=== PATIENT | male | born 1945 | race Caucasian/White ===

== ENCOUNTER 2016-04-29 22:41 | Emergency (ER) | payer BC, MEDICARE ==
--- NOTE | 2016-04-29 23:58 | ER Document Report ---
ED Medical Screen (RME) - General Stated Complaint: POSSIBLE HEMORROIDS Notes: 70 year old male, complaining of worsening hemorrhoid pain with painful sitting and painful bowel movements. Pain has been going on for months. Patient has had hemorrhoid surgery many years ago reportedly. Patient states he's been evaluated 3 times up for this already, given Percocet, ibuprofen, and a topical cream but these do not appear to be helping. Intermittent bleeding, no current bleeding. Patient denies any abdominal pain, dizziness, fever. - Related Data Allergies/Adverse Reactions: Iodinated Contrast Media - Oral and [IV Dye, Iodine Containing] Allergy ( Verified 09/03/12 13:36) "convulsions"/hives Past Medical History Pulmonary Medical History: Reports: Hx COPD Renal/ Medical History: Reports: Hx Kidney Stones Past Surgical History: Reports: Hx Appendectomy, Hx Cardiac Catheterization, Hx Kidney (Renal Surgery) - Immunizations Hx Diphtheria, Pertussis, Tetanus Vaccination: No Physical Exam - Vital signs Vitals: Temp Pulse Resp BP Pulse Ox 98.0 F 68 20 118/81 96 04/29/16 23:19 04/29/16 23:19 04/29/16 23:19 04/29/16 23:19 04/29/16 23:19 - General General appearance: Anxious In distress: None - Patient is in no distress but sits awkwardly on the chair Course - Vital Signs Vital signs: Temp Pulse Resp BP Pulse Ox 98.0 F 68 20 118/81 96 04/29/16 23:19 04/29/16 23:19 04/29/16 23:19 04/29/16 23:19 04/29/16 23:19
--- NOTE | 2016-04-30 05:11 | ER Document Report ---
ED GI/ - General Chief Complaint: Rectal Pain Stated Complaint: POSSIBLE HEMORROIDS Time seen by provider: 05:00 Notes: 70 year old male, complaining of worsening hemorrhoid pain with painful sitting and painful bowel movements. Pain has been going on for months. Patient has had hemorrhoid surgery many years ago reportedly. Patient states he's been evaluated 3 times up for this already, given Percocet, ibuprofen, and a topical cream but these do not appear to be helping. Intermittent bleeding, no current bleeding. Patient denies any abdominal pain, dizziness, fever. TRAVEL OUTSIDE OF THE [place] IN LAST 30 DAYS: No - Related Data Allergies/Adverse Reactions: Iodinated Contrast Media - Oral and [IV Dye, Iodine Containing] Allergy ( Verified 09/03/12 13:36) "convulsions"/hives Past Medical History - General Information source: Patient - Social History Smoking Status: Former Smoker Chew tobacco use (# tins/day): No Frequency of alcohol use: None Drug Abuse: None Lives with: Family Family History: CAD Patient has suicidal ideation: No Patient has homicidal ideation: No Pulmonary Medical History: Reports: Hx COPD Renal/ Medical History: Reports: Hx Kidney Stones. Denies: Hx Peritoneal Dialysis Past Surgical History: Reports: Hx Appendectomy, Hx Cardiac Catheterization, Hx Kidney (Renal Surgery) - Immunizations Hx Diphtheria, Pertussis, Tetanus Vaccination: No Hx Pneumococcal Vaccination: 12/28/11 Review of Systems - Review of Systems Constitutional: No symptoms reported EENT: No symptoms reported Cardiovascular: No symptoms reported Respiratory: No symptoms reported Gastrointestinal: See HPI Genitourinary: No symptoms reported Male Genitourinary: No symptoms reported Musculoskeletal: No symptoms reported Skin: No symptoms reported Hematologic/Lymphatic: No symptoms reported Neurological/Psychological: No symptoms reported Physical Exam - Vital signs Vitals: Temp Pulse Resp BP Pulse Ox 98.0 F 68 20 118/81 96 04/29/16 23:19 04/29/16 23:19 04/29/16 23:19 04/29/16 23:19 04/29/16 23:19 Interpretation: Normal - General General appearance: Appears well, Alert - HEENT Head: Normocephalic, Atraumatic Eyes: Normal Pupils: PERRL - Respiratory Respiratory status: No respiratory distress Chest status: Nontender Breath sounds: Normal Chest palpation: Normal - Cardiovascular Rhythm: Regular Heart sounds: Normal auscultation Murmur: No - Abdominal Inspection: Normal Distension: No distension Bowel sounds: Normal Tenderness: Nontender. No: Tender, Guarding Organomegaly: No organomegaly - Rectal Tenderness: No - no significant tenderness Stool: No: Black, Bloody Hemorrhoids: Internal, External - 2 large but are be opened and not currently bleeding external hemorrhoids, no thrombosed hemorrhoids, Other - No palpated induration or fluctuance, no evidence of perianal abscess. No: Anal fissure - Back Back: Normal, Nontender - Extremities General upper extremity: Normal inspection, Nontender, Normal color, Normal ROM , Normal temperature General lower extremity: Normal inspection, Nontender, Normal color, Normal ROM , Normal temperature, Normal weight bearing. No: Alexandro's sign - Neurological Neuro grossly intact: Yes Cognition: Normal Orientation: AAOx4 Boon Coma Scale Eye Opening: Spontaneous Boon Coma Scale Verbal: Oriented Abram Coma Scale Motor: Obeys Commands Abram Coma Scale Total: 15 Speech: Normal Motor strength normal: LUE, RUE, LLE, RLE Sensory: Normal - Psychological Associated symptoms: Normal affect, Normal mood - Skin Skin Temperature: Warm Skin Moisture: Dry Skin Color: Normal Course - Re-evaluation Re-evalutation: Patient has hemorrhoids but these have already drained/bled, no lancing necessary, no fissure, no evidence of perianal abscess on examination. Patient will be treated for hemorrhoids symptomatically, referred to surgery. - Vital Signs Vital signs: Temp Pulse Resp BP Pulse Ox 97.6 F 68 16 129/74 H 96 04/30/16 05:23 04/30/16 05:23 04/30/16 05:23 04/30/16 05:23 04/30/16 05:23 Discharge - Discharge Clinical Impression: Internal hemorrhoid, External hemorrhoid Condition: Stable Disposition: HOME, SELF-CARE Additional Instructions: The hemorrhoids are not thrombosed and already opened. Uses suppository, use the cream, take stool softener, follow-up with surgery for additional management. Return the emergency department for any concerning or worsening symptoms including fever, abdominal pain, etc. Prescriptions: Docusate Sodium [Colace 100 mg Capsule] 100 mg PO DAILY #30 capsule Lidocaine/Hydrocortisone AC [Lidocaine-Hc 3-1% Cream] 7 gm RC ASDIR PRN #1 tub PRN Reason: Phenylephrine HCl [Anusol Suppository] 1 supp.rect NH BID #28 supp.rect Referrals: [facility] [Provider Group] - Follow up as needed
[2016-04-30 07:18] VITALS: BP 129/74
== END 2016-04-30 05:23 | disposition home or self-care (01) ==
LOC: ER 22:41
DX: K64.8 Other hemorrhoids (principal); K64.4 Residual hemorrhoidal skin tags; J44.9 Chronic obstructive pulmonary disease, unspecified; Z87.442 Personal history of urinary calculi
CPT/HCPCS: 99283

== ENCOUNTER 2017-09-20 17:52 | Emergency (ER) | payer MEDICARE, BC ==
[2017-09-20] MEDS ORDERED: OXYCODONE-ACETAMINOPHEN 5-325 MG TABLET PO ONE (18:20)
--- NOTE | 2017-09-20 18:25 | ER Document Report ---
ED Medical Screen (RME) - General Chief Complaint: Chest Pain Stated Complaint: LEFT ARM/SHOULDER PAIN Time Seen by Provider: 09/20/17 18:10 Notes: 72-year-old male patient reports 2 day history of pain to the left scapular back and arm. He reports it started last week with his neck hurting, could not get comfortable. Did take muscle relaxers and NSAIDs. Yesterday the pain got bad in the left scapular region going to the shoulder and left forearm. 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 His primary care provider is with [facility]. He did go see a chiropractor, it did not help at all and possibly hurt more after he left. Brief exam shows that he is quite tender in the left inferolateral scapular region, is tender in the medial scapula and left trapezius muscles. I have greeted and performed a rapid initial assessment of this patient. A comprehensive ED assessment and evaluation of the patient, analysis of test results and completion of the medical decision making process will be conducted by additional ED providers. TRAVEL OUTSIDE OF THE [place] IN LAST 30 DAYS: No - Related Data Allergies/Adverse Reactions: Iodinated Contrast- Oral and IV Dye [IV Dye, Iodine Containing] Allergy ( Verified 09/20/17 18:16) "convulsions"/hives Past Medical History - Social History Frequency of alcohol use: None - Past Medical History Cardiac Medical History: Reports: Hx Hypertension Pulmonary Medical History: Reports: Hx COPD Endocrine Medical History: Reports: Hx Diabetes Mellitus Type 2 Renal/ Medical History: Reports: Hx Kidney Stones. Denies: Hx Peritoneal Dialysis Past Surgical History: Reports: Hx Appendectomy, Hx Cardiac Catheterization, Hx Cardiac Surgery - CABGx4, Hx Kidney (Renal Surgery), Hx Neurologic Surgery - L5 disc herniation - Immunizations Hx Diphtheria, Pertussis, Tetanus Vaccination: No Physical Exam - Vital signs Vitals: Temp Pulse Resp BP Pulse Ox 97.6 F 77 16 138/77 H 95 09/20/17 18:03 09/20/17 18:03 09/20/17 18:03 09/20/17 18:03 09/20/17 18:03 Course - Vital Signs Vital signs: Temp Pulse Resp BP Pulse Ox 97.6 F 77 16 138/77 H 95 09/20/17 18:03 09/20/17 18:03 09/20/17 18:03 09/20/17 18:03 09/20/17 18:03
[2017-09-20 19:04] LABS: ABSOLUTE BASOPHILS # (AUTO) 0.1 10^3/uL (0.0-0.2); ABSOLUTE EOSINOPHILS # (AUTO) 0.6 10^3/uL (0.0-0.6); ABSOLUTE LYMPHOCYTES (AUTO) 2.6 10^3/uL (0.5-4.7); ABSOLUTE MONOCYTES (AUTO) 0.8 10^3/uL (0.1-1.4); ABSOLUTE NEUT (AUTO) 5.1 10^3/uL (1.7-8.2); BASOPHILS % (AUTO) 1.1 % (0-2); HEMATOCRIT 46.2 % (37.9-51.0); HEMOGLOBIN 16.2 g/dL (13.5-17.0); LYMPHOCYTES % (AUTO) 27.6 % (13-45); MEAN CORPUSCULAR HEMOGLOBIN 32.3 pg (27.0-33.4); MEAN CORPUSCULAR VOLUME 92 fl (80-97); PLATELET COUNT 188 10^3/uL (150-450); RED BLOOD COUNT 5.01 10^6/uL (4.35-5.55); RED CELL DISTRIBUTION WIDTH 13.3 % (11.5-14.0); SEGMENTED NEUTROPHILS % (AUTO) 55.3 % (42-78); TOTAL CELLS COUNTED % (AUTO) 100 %; WHITE BLOOD COUNT 9.3 10^3/uL (4.0-10.5)
[2017-09-20 19:20] LABS: ALANINE AMINOTRANSFERASE 40 U/L (21-72); ALBUMIN 4.9 g/dL (3.5-5.0); ALKALINE PHOSPHATASE 65 U/L (38-126); ANION GAP 14 (5-19); ASPARTATE AMINO TRANSFERASE 27 U/L (17-59); BILIRUBIN,DIRECT 0.3 mg/dL (0.0-0.4); BILIRUBIN,TOTAL 0.9 mg/dL (0.2-1.3); BLOOD UREA NITROGEN 15 mg/dL (7-20); CALCIUM 10.1 mg/dL (8.4-10.2); CARBON DIOXIDE 30 mmol/L (22-30); CHLORIDE 100 mmol/L (98-107); CREATINE KINASE 55 U/L (55-170); GLUCOSE 128 mg/dL (75-110); POTASSIUM 4.7 mmol/L (3.6-5.0); SODIUM 143.6 mmol/L (137-145); TOTAL PROTEIN 8.1 g/dL (6.3-8.2)
--- NOTE | 2017-09-20 19:23 | ER Document Report ---
ED General - General Chief Complaint: Chest Pain Stated Complaint: LEFT ARM/SHOULDER PAIN Time Seen by Provider: 09/20/17 18:10 Notes: Patient is a 72-year-old male that comes emergency department for chief complaint of pain in his left upper back and neck radiating over to his left arm , he states symptoms started last and felt like he had slept wrong on his neck, improved, and then worsened, over the past couple of days he has had sharp pain that is keeping him from getting comfortable. He took an NSAID and a muscle relaxer. He has had lumbar fusion but no history of cervical spine or shoulder abnormality. He states that he did try going to a chiropractor but he hurt more after he left. Past medical history includes otherwise patient with CABG in 2004, negative cardiac cath in 2011, hypertension, COPD, type 2 diabetes. TRAVEL OUTSIDE OF THE [place] IN LAST 30 DAYS: No - Related Data Allergies/Adverse Reactions: Iodinated Contrast- Oral and IV Dye [IV Dye, Iodine Containing] Allergy ( Verified 09/20/17 18:16) "convulsions"/hives Past Medical History - General Information source: Patient - Social History Smoking Status: Former Smoker Frequency of alcohol use: None Drug Abuse: None Lives with: Family Family History: CAD Patient has suicidal ideation: No Patient has homicidal ideation: No - Past Medical History Cardiac Medical History: Reports: Hx Hypertension Pulmonary Medical History: Reports: Hx COPD Endocrine Medical History: Reports: Hx Diabetes Mellitus Type 2 Renal/ Medical History: Reports: Hx Kidney Stones. Denies: Hx Peritoneal Dialysis Past Surgical History: Reports: Hx Appendectomy, Hx Cardiac Catheterization, Hx Cardiac Surgery - CABGx4, Hx Kidney (Renal Surgery), Hx Neurologic Surgery - L5 disc herniation - Immunizations Hx Diphtheria, Pertussis, Tetanus Vaccination: No Hx Pneumococcal Vaccination: 12/28/11 Review of Systems - Review of Systems Constitutional: No symptoms reported EENT: No symptoms reported Cardiovascular: No symptoms reported Respiratory: No symptoms reported Gastrointestinal: No symptoms reported Genitourinary: No symptoms reported Male Genitourinary: No symptoms reported Musculoskeletal: See HPI Skin: No symptoms reported Hematologic/Lymphatic: No symptoms reported Neurological/Psychological: No symptoms reported Physical Exam - Vital signs Vitals: Temp Pulse Resp BP Pulse Ox 97.6 F 77 16 138/77 H 95 09/20/17 18:03 09/20/17 18:03 09/20/17 18:03 09/20/17 18:03 09/20/17 18:03 - Notes Notes: GENERAL: Alert, interacts well. No acute distress. HEAD: Normocephalic, atraumatic. EYES: Pupils equal, round, and reactive to light. Extraocular movements intact. ENT: Oral mucosa moist, tongue midline. NECK: Full range of motion. Supple. Trachea midline. LUNGS: Clear to auscultation bilaterally, no wheezes, rales, or rhonchi. No respiratory distress. HEART: Regular rate and rhythm. No murmur ABDOMEN: Soft, non-tender. Non-distended. Bowel sounds present in all 4 quadrants. EXTREMITIES: Moves all 4 extremities spontaneously. No edema, normal radial and dorsalis pedis pulses bilaterally. No cyanosis. BACK: Tenderness in the left subscapular area extending up to the left trapezius muscle and into the paracervical muscles, this is specific, reproducible, patient winces, pain with moving his arm up over his head and behind his back although range of motion is normal at the left shoulder, pain also with limited range of motion with lateral rotation of the neck especially to the right. No midline tenderness of the spine, no saddle anesthesia, normal upper and lower extremity range of motion, strength, distal neurovascular exam. NEUROLOGICAL: Alert and oriented x3. Normal speech. [cranial nerves II through XII grossly intact]. PSYCH: Normal affect, normal mood. SKIN: Warm, dry, normal turgor. No rashes or lesions noted. Course - Re-evaluation Re-evalutation: Patient with very reproducible and specific muscular skeletal pain. He now recalls drilling bolts into a wall using his left arm and holding the wall with his right arm before symptom onset a few days ago. EKG showing sinus rhythm with no T-wave inversions or ST segment changes in consecutive leads. CBC unremarkable, chemistry unremarkable, troponin is not elevated. Patient with multiple days of reported symptoms, has no chest pain, has no shortness of breath, no dizziness, no abdominal pain, no nausea, only reporting musculoskeletal symptoms. Patient is asking to leave, asking for medications alternative to what he is taking, he does very poorly with narcotic medication and gets severely constipated. Discussed follow-up, referral to orthopedics, patient states he is going to call physical therapy which he has been established with in the past as well, discussed return precautions in detail including if he develops any chest pain or symptoms suggestive of cardiac abnormality. Patient states understanding and agreement. - Vital Signs Vital signs: Temp Pulse Resp BP Pulse Ox 97.5 F 77 10 L 132/92 H 96 09/20/17 20:23 09/20/17 18:03 09/20/17 20:23 09/20/17 20:23 09/20/17 20:23 - Laboratory Result Diagrams: 09/20/17 18:51 09/20/17 18:51 Laboratory results interpreted by me: 09/20/17 09/20/17 18:51 18:51 Eosinophils % 7.0 H Glucose 128 H Discharge - Discharge Clinical Impression: Upper back pain on left side Condition: Stable Disposition: HOME, SELF-CARE Additional Instructions: Examination consistent with strain of the upper back muscles and trapezius muscles on the left. Exam also suggests some spasm. Take Valium as prescribed, apply heat to the area, do gentle range of motion, follow-up with orthopedics for additional evaluation and management. He might need physical therapy. Return if you worsen including developing chest pain, dizziness, vomiting, passing out, fever, numbness, weakness, or any other concerning or worsening symptoms. Prescriptions: Diazepam [Valium 5 mg Tablet] 5 mg PO TID PRN #15 tablet PRN Reason: Referrals: JUNITO JOHNSON MD [ACTIVE STAFF] - Follow up in 3-5 days
[2017-09-20] MEDS ORDERED: HYDROCODONE/ACETAMINOPHEN 5-325 MG (6 TAB/ER DISP) PO PRN (20:02)
[2017-09-20 20:28] VITALS: BP 132/92
--- NOTE | 2017-09-21 08:00 | EKG REPORT ---
SEVERITY:- ABNORMAL ECG - SINUS RHYTHM INCOMPLETE RIGHT BUNDLE BRANCH BLOCK : Confirmed by: Sandra Chacon MD 21-Sep-2017 07:59:32
== END 2017-09-20 20:31 | disposition home or self-care (01) ==
LOC: ER 17:52
DX: M54.89 Other dorsalgia (principal); I10 Essential (primary) hypertension; E11.9 Type 2 diabetes mellitus without complications; J44.9 Chronic obstructive pulmonary disease, unspecified; Z91.041 Radiographic dye allergy status; Z98.1 Arthrodesis status; Z95.1 Presence of aortocoronary bypass graft
CPT/HCPCS: 93005; 99284; 36415; 82550; 85025; 80053; 84484; 93010; A9270 ×2

== ENCOUNTER 2019-08-31 08:49 | Day surgery (SDC) | payer BC, OTHER ==
[~2019-08-31 08:49] MED LIST: CHONDR SU A NA/HYALUR INTRAOC KIT (SURGICARE) ONE; EPINEPHRINE INJ/PF 1 MG/1 ML AMPULE ONE; KETOROLAC TROMETHAMINE 0.45% 4 DROP/0.4 ML DROPERETTE OD PRN; LIDOCAINE 1%/PHENYLEPHRINE 1.5% 1 ML VIAL ONE
[2019-08-31] MEDS: BESIFLOXACIN HCL 0.6% OPH SUSP 5 ML BOTTLE OD PRN ×4 (09:10→10:10)
[2019-08-31] MEDS: CYCLOPENTOLATE 0.2%/PHENYLEPHRINE 1% OPH SOLN 2 ML OD PRN ×3 (09:10→09:40)
[2019-08-31] MEDS: TETRACAINE HCL 0.5% OPH SOLN 4 ML OD PRN ×3 (09:10→09:46)
[2019-08-31] MEDS: TROPICAMIDE 1% OPH SOLN 15 ML OD PRN ×3 (09:10→09:40)
[2019-08-31] MEDS ORDERED: MIDAZOLAM 2 MG/2 ML INJ ONE (09:32)
[2019-08-31] MEDS ORDERED: FENTANYL CITRATE INJ/PF 100 MCG/2 ML AMPUL ONE (09:33)
[2019-08-31] MEDS: DORZOLAMIDE HCL 2%/TIMOLOL MALEAT 0.5% OPH SOLN 10 ML OD PRN ×2 (10:10)
--- NOTE | 2019-08-31 11:43 | Operative Report ---
Operative Report-[facility] Operative Report: DATE OF SURGERY: 08/31/2019 PREOPERATIVE DIAGNOSIS: Cataract, right eye POSTOPERATIVE DIAGNOSIS: Cataract, right eye OPERATION: Cataract extraction with insertion of an IOL of the right eye. Intraocular Lens Model: [23.5 sn60wf] Underwent surgery for difficulty reading SURGEON: William Castillo MD ANESTHESIA: Topical PROCEDURE: After obtaining appropriate consent, the patient's right eye was prepped and draped in a sterile fashion as well as the surgeon in the sterile manner and cataract surgery was started. First a paracentesis blade was used to make a side-port incision. Viscoelastic was used to inflate the anterior chamber. Next a 2.4 mm incision was made with a 2.4 mm blade, clear corneal temp orarily. A continuous capsulorrhexis was made using a cystotome and Utrata forceps. Following this hydrodissection was carried out to make the herminio fully loose and mobile and it was rotated. Following this, a divide and conquer technique was used to phacoemulsify the herminio. The remaining cortex was removed with an irrigation/aspiration. Provisc was instilled into the capsular bag to inflate the bag. The intraocular lens was placed. The remaining viscoelastic material was removed with irrigation/aspiration. Following this, the incision was found to be watertight. Besivance and Cosopt was instilled into the eye and a protective shield was placed over the eye. The patient was reurned to the postoperative recovery in a stable condition.
== END 2019-08-31 10:45 | disposition home or self-care (01) ==
LOC: SC 08:49
PROVIDERS: ATTEND Internal Medicine
DX: H25.813 Combined forms of age-related cataract, bilateral (principal); H43.391 Other vitreous opacities, right eye; D31.31 Benign neoplasm of right choroid; H52.03 Hypermetropia, bilateral; E11.9 Type 2 diabetes mellitus without complications; E78.00 Pure hypercholesterolemia, unspecified; Z87.891 Personal history of nicotine dependence; Z79.899 Other long term (current) drug therapy; I10 Essential (primary) hypertension; K21.9 Gastro-esophageal reflux disease without esophagitis; Z91.041 Radiographic dye allergy status
CPT/HCPCS: 66984; 82962; J2250; J3490 ×2; J0171; J3010; V2632

== ENCOUNTER 2019-09-21 07:01 | Day surgery (SDC) | payer OTHER ==
[~2019-09-21 07:01] MED LIST changes: -CHONDR SU A NA/HYALUR INTRAOC KIT (SURGICARE) ONE; -EPINEPHRINE INJ/PF 1 MG/1 ML AMPULE ONE; -KETOROLAC TROMETHAMINE 0.45% 4 DROP/0.4 ML DROPERETTE OD PRN; +KETOROLAC TROMETHAMINE 0.45% 4 DROP/0.4 ML DROPERETTE OS PRN; -LIDOCAINE 1%/PHENYLEPHRINE 1.5% 1 ML VIAL ONE
[2019-09-21] MEDS ORDERED: CHONDR SU A NA/HYALUR INTRAOC KIT (SURGICARE) ONE (07:20)
[2019-09-21] MEDS ORDERED: LIDOCAINE 1%/PHENYLEPHRINE 1.5% 1 ML VIAL ONE (07:20)
[2019-09-21] MEDS ORDERED: EPINEPHRINE INJ/PF 1 MG/1 ML AMPULE ONE (07:20)
[2019-09-21] MEDS ORDERED: ONDANSETRON HCL INJ/PF 4 MG/2 ML SDV ONE (07:27)
[2019-09-21] MEDS ORDERED: FENTANYL CITRATE INJ/PF 100 MCG/2 ML AMPUL ONE (07:27)
[2019-09-21] MEDS ORDERED: MIDAZOLAM 2 MG/2 ML INJ ONE (07:27)
[2019-09-21] MEDS: TROPICAMIDE 1% OPH SOLN 15 ML OS PRN ×3 (08:07→08:28)
[2019-09-21] MEDS: TETRACAINE HCL 0.5% OPH SOLN 4 ML OS PRN ×3 (08:07→08:41)
[2019-09-21] MEDS: CYCLOPENTOLATE 0.2%/PHENYLEPHRINE 1% OPH SOLN 2 ML OS PRN ×3 (08:08→08:28)
[2019-09-21] MEDS: BESIFLOXACIN HCL 0.6% OPH SUSP 5 ML BOTTLE OS PRN ×4 (08:08→09:00)
[2019-09-21] MEDS: DORZOLAMIDE HCL 2%/TIMOLOL MALEAT 0.5% OPH SOLN 10 ML OS PRN ×2 (09:01)
--- NOTE | 2019-09-21 13:07 | Operative Report ---
Operative Report-[facility] Operative Report: DATE OF SURGERY: 09/21/19 PREOPERATIVE DIAGNOSIS: Cataracts, left eye POSTOPERATIVE DIAGNOSIS: Cataract, left eye OPERATION: Cataract extraction with insertion of an IOL of the left eye. Intraocular Lens Model: [25.0 sn60wf] Underwent surgery due to difficulty driving at night SURGEON: William Castillo MD ANESTHESIA: Topical PROCEDURE: After obtaining appropriate consent, the patient's left eye was prepped and draped in a sterile fashion as well as the surgeon in the sterile manner and cataract surgery was started. First a paracentesis blade was used to make a side-port incision. Viscoelastic was used to inflate the anterior chamber. Next a 2.4 mm incision was made with a 2.4 mm blade, clear corneal temporarily. A continuous capsulorrhexis was made using a cystotome and Utrata forceps. Following this hydrodissection was carried out to make the lens fully loose and mobile and it was rotated 90 degrees. Following this, a divide and conquer technique was used to phacoemulsify the lens. The remaining cortex was removed with an irrigation/aspiration. Provisc was instilled into the capsular bag to inflate the bag.The intraocular lens was placed. The remaining viscoelastic material was removed with irrigation/aspiration. Following this, the incision was found to be watertight. Besivance and Cosopt was instilled into the eye and a protective shield was placed over the eye. The patient was returned to the postoperative recovery in a stable condition.
== END 2019-09-21 09:33 | disposition home or self-care (01) ==
LOC: SC 07:01
PROVIDERS: ATTEND Internal Medicine
DX: H25.812 Combined forms of age-related cataract, left eye (principal); Z96.1 Presence of intraocular lens; E11.9 Type 2 diabetes mellitus without complications; E78.00 Pure hypercholesterolemia, unspecified; Z87.891 Personal history of nicotine dependence; G47.33 Obstructive sleep apnea (adult) (pediatric); I25.10 Atherosclerotic heart disease of native coronary artery without angina pectoris; Z91.041 Radiographic dye allergy status; I51.9 Heart disease, unspecified
CPT/HCPCS: 66984; 82962; V2632; J2250; J3490 ×2; J0171; J2405; 142; J3010

== ENCOUNTER → 2020-03-21 | Outpatient (CLI) | payer BC ==
--- NOTE | 2020-03-21 13:56 | RADIOLOGY REPORT (SQ) ---
EXAM DESCRIPTION: CT CHEST WITHOUT IMAGES COMPLETED DATE/TIME: 03/21/2020 7:50 am REASON FOR STUDY: (R59.1)GENERALIZED ENLARGED LYMPH NODES R59.0 LOCALIZED ENLARGED LYMPH NODES R59. 1 GENERALIZED ENLARGED LYMPH NODES COMPARISON: None. TECHNIQUE: CT scan performed of the chest without intravenous contrast. Images reviewed with lung, soft tissue and bone windows. Reconstructed coronal and sagittal MPR images reviewed. All images st ored on PACS. All CT scanners at this facility use dose modulation, iterative reconstruction, and/or weight based d osing when appropriate to reduce radiation dose to as low as reasonably achievable (ALARA). [facility]: Dose Right [facility]: CareDose [facility]: Dose Right [facility]: Teradose 4D [facility]: [employer] RADIATION DOSE: mGy. LIMITATIONS: No technical limitations. FINDINGS: LUNGS AND PLEURA: No suspicious nodule or mass. Mild paraseptal emphysematous changes. D ependent atelectasis. No pleural effusion or pneumothorax. HILAR AND MEDIASTINAL STRUCTURES: Scattered subcentimeter lymph nodes are a nonspecific finding. No mediastinal mass or significant lymphadenopathy. No aneurysm. HEART AND VASCULAR STRUCTURES: No pericardial effusion. Three-vessel coronary artery disease is demo nstrated. UPPER ABDOMEN: See separate report of the CT of the abdomen. THYROID AND OTHER SOFT TISSUES: No masses. No adenopathy. BONES: No significant finding. HARDWARE: None in the chest. OTHER: No other significant findings. IMPRESSION: No noncontrast CT evidence of intrathoracic primary or metastatic disease. TECHNICAL DOCUMENTATION: JOB ID: [id number] Quality ID # [id number]: Final reports with documentation of one or more dose reduction techniques (e.g., Au tomated exposure control, adjustment of the mA and/or kV according to patient size, use of iterative reconstruction technique) 2010 [employer]- All Rights Reserved Reading location - IP/workstation name: [email or web address]
--- NOTE | 2020-03-21 13:56 | RADIOLOGY REPORT (SQ) ---
EXAM DESCRIPTION: CT ABD/PELVIS NO ORAL OR IV IMAGES COMPLETED DATE/TIME: 03/21/2020 7:50 am REASON FOR STUDY: (R59.1)GENERALIZED ENLARGED LYMPH NODES R59.0 LOCALIZED ENLARGED LYMPH NODES R59. 1 GENERALIZED ENLARGED LYMPH NODES COMPARISON: 02/04/2012 TECHNIQUE: CT scan of the abdomen and pelvis performed without intravenous or oral contrast. Images reviewed with lung, soft tissue, and bone windows. Reconstructed coronal and sagittal MPR images revi ewed. All images stored on PACS. All CT scanners at this facility use dose modulation, iterative reconstruction, and/or weight based d osing when appropriate to reduce radiation dose to as low as reasonably achievable (ALARA). [facility]: Dose Right [facility]: CareDose [facility]: Dose Right [facility]: Teradose 4D [facility]: [employer] RADIATION DOSE: mGy. LIMITATIONS: None. FINDINGS: LOWER CHEST: See separate report of the CT of the chest. NON-CONTRASTED LIVER, SPLEEN, ADRENALS: Evaluation limited by lack of IV contrast. No identified sign ificant masses. PANCREAS: No masses. No peripancreatic inflammatory changes. GALLBLADDER: Gallstones. No inflammatory changes to suggest cholecystitis. RIGHT KIDNEY AND URETER: No suspicious masses. Assessment limited by lack of IV contrast. Few punct ate nonobstructing nephroliths. No hydronephrosis or hydroureter. LEFT KIDNEY AND URETER: No suspicious masses. Assessment limited by lack of IV contrast. No signifi cant calcifications. No hydronephrosis or hydroureter. AORTA AND RETROPERITONEUM: No aneurysm. No retroperitoneal masses or adenopathy. BOWEL AND PERITONEAL CAVITY: No obvious masses or inflammatory changes. No free fluid. APPENDIX: Not visualized. PELVIS, BLADDER, AND ABDOMINAL WALL:No abnormal masses. No free fluid. Bladder normal. Incidental no te is made of bilateral fat containing inguinal hernias. BONES: Degenerative changes are seen of the hips noting subcortical sclerosis suggesting early avascu lar necrosis. Degenerative changes are seen of the spine. No suspicious lytic or blastic osseous le sions. OTHER: No other significant finding. IMPRESSION: No noncontrast CT evidence of intra-abdominal primary or metastatic disease. COMMENT: Quality ID # [id number]: Final reports with documentation of one or more dose reduction techniques (e.g., Automated exposure control, adjustment of the mA and/or kV according to patient size, use of iterative reconstruction technique) TECHNICAL DOCUMENTATION: JOB ID: [id number] 2010 [employer]- All Rights Reserved Reading location - IP/workstation name: [email or web address]
--- NOTE | 2020-03-21 14:28 | RADIOLOGY REPORT (SQ) ---
EXAM DESCRIPTION: CT SOFT TISSUE NECK WITHOUT IMAGES COMPLETED DATE/TIME: 03/21/2020 7:48 am REASON FOR STUDY: (R59.1)GENERALIZED ENLARGED LYMPH NODES R59.0 LOCALIZED ENLARGED LYMPH NODES R59. 1 GENERALIZED ENLARGED LYMPH NODES COMPARISON: 03/04/2013 TECHNIQUE: Noncontrast scanning from skull base through lung apices with review of bone, soft tissue and lung windows. Reconstructed coronal and sagittal MPR images reviewed. All images stored on PAC S. All CT scanners at this facility use dose modulation, iterative reconstruction, and/or weight based d osing when appropriate to reduce radiation dose to as low as reasonably achievable (ALARA). [facility]: Dose Right [facility]: CareDose [facility]: Dose Right [facility]: Teradose 4D [facility]: [employer] RADIATION DOSE: CT Rad equipment meets quality standard of care and radiation dose reduction techniq ues were employed. CTDIvol: 16.9 - 22.9 mGy. DLP: 2099 mGy-cm. mGy. LIMITATIONS: None. FINDINGS: SKULL BASE: Intact. MAJOR SALIVARY GLANDS: No solid or cystic masses. No inflammatory changes. LYMPHADENOPATHY: No cervical lymphadenopathy. Scattered subcentimeter lymph nodes are seen throughou t the cervical soft tissues, some appear slightly larger than comparison, others appear slightly smal ler than comparison, and none are pathologic by size criteria. MUCOSAL MASSES OR ASYMMETRY: No mucosal masses or asymmetry. LARYNX/CORDS: No abnormal findings. LUNG APICES: Clear. BONES: Multilevel spondylotic changes. No suspicious lytic or blastic osseous lesions. No acute fin dings. THYROID: Normal size. No masses. PARANASAL SINUSES: No evidence of acute or chronic sinusitis. Scant lobular mucosal thickening withi n the left maxillary sinus. OTHER: No other significant finding. IMPRESSION: No noncontrast CT evidence of cervical mass or lymphadenopathy. TECHNICAL DOCUMENTATION: JOB ID: [id number] Quality ID # [id number]: Final reports with documentation of one or more dose reduction techniques (e.g., Au tomated exposure control, adjustment of the mA and/or kV according to patient size, use of iterative reconstruction technique) 2010 [employer]- All Rights Reserved Reading location - IP/workstation name: [email or web address]
== END ==
LOC: RAD 07:27
PROVIDERS: ATTEND Nurse Practitioner
DX: R59.0 Localized enlarged lymph nodes (principal)
CPT/HCPCS: 70490; 71250; 74176